=== PATIENT | male | born 1970 | race Caucasian/White ===

== ENCOUNTER 2017-08-18 10:36 | Emergency (ER) | payer MEDICAID ==
[~2017-08-18] VITALS: Ht 175.3 cm; Wt 86.2 kg
[~2017-08-18 10:36] MED LIST: INSR100KIT SC; Insulin Detemir SC; LIS5T PO
[2017-08-18 10:47] VITALS: BP 154/89
== END 2017-08-18 12:12 | disposition home or self-care (01) ==
LOC: ER 10:36
DX: S52.501A Unspecified fracture of the lower end of right radius, initial encounter for closed fracture (principal); E11.9 Type 2 diabetes mellitus without complications; F17.210 Nicotine dependence, cigarettes, uncomplicated; W01.0XXA Fall on same level from slipping, tripping and stumbling without subsequent striking against object, initial encounter; Y93.89 Activity, other specified; Y99.8 Other external cause status; Y92.89 Other specified places as the place of occurrence of the external cause
CPT/HCPCS: 29125; 73130